=== PATIENT | male | born 1930 | race Hispanic/Latino ===

== ENCOUNTER 2017-08-06 10:04 | Outpatient (CLI) | payer MEDICARE, MEDICAID | END 2017-08-06 10:05 | disposition home or self-care (01) | PROVIDERS: ATTEND Specialist | DX: R13.13 Dysphagia, pharyngeal phase (principal); R63.3 Feeding difficulties | CPT/HCPCS: 74230; G8996-GN-CJ; G8997-GN-CI; G8998-GN-CJ ==

== ENCOUNTER 2018-12-06 13:25 | Outpatient (CLI) | payer MEDICARE, MEDICAID ==
--- NOTE | 2018-12-06 13:41 | RAD ---
XR Shoulder Rt 3 View STANDARD HISTORY: Right shoulder pain COMPARISON: None. FINDINGS: The bones are demineralized. There are moderate arthritic changes of the acromioclavicular and glenohumeral joints. The humeral head is high riding directly abutting the undersurface of the acromium, these changes are compatible with a chronic rotator cuff tear. IMPRESSION: Marked arthritic changes of the shoulder.
== END 2018-12-06 13:26 | disposition home or self-care (01) ==
LOC: BICRAD 13:25
PROVIDERS: ATTEND Specialist
DX: M25.511 Pain in right shoulder (principal); M19.011 Primary osteoarthritis, right shoulder